=== PATIENT | male | born 1935 | race Caucasian/White ===

== ENCOUNTER 2017-02-18 10:35 | Emergency (ER) | payer BC ==
[2017-02-18 10:45] VITALS: BP 137/70; PULSE 66; TEMP 98.6; BMI 21.9
[2017-02-18] MEDS ORDERED: ONDANSETRON 4 MG/2 ML VIAL IVPUSH ONE (10:48)
[2017-02-18] MEDS ORDERED: SODIUM CHLORIDE 1,000 ML IV STA ×2 (10:48→12:17)
[2017-02-18] MEDS ORDERED: FAMOTIDINE 20 MG/50 ML IVPB 20 MG/50 ML MG IVPB ONE ×3 (10:48→10:59)
--- NOTE | 2017-02-18 10:48 | PDOC ---
History of Present Illness - General Chief Complaint: Vomiting/Diarrhea Stated Complaint: VOMITING, DIARRHEA Time Seen by Provider: 02/18/17 10:42 History Source: Patient Exam Limitations: No Limitations - History of Present Illness Initial Comments: 81 yo M history HTN, Parkinson's, paroxysmal afib (on coumadin) presents with 7 hour history of N/V/D. He states he woke up at 2am, felt nauseous, then proceeded to have multiple episodes of NBNB vomiting and watery diarrhea. He attempted to take his medication at 6am with a sip of water, then immediately vomited up the pills. At that point he stopped trying to eat or drink and called his PMD, who recommended that he present to the ED for possible dehydration. Denies weakness, fever, abd pain. He is not currently nauseated, but it tends to occur when he tries to eat. Past History - Past Medical History Allergies/Adverse Reactions: Allergies Allergy/AdvReac Type Severity Reaction Status Date / Time No Known Allergies Allergy Verified 02/18/17 10:38 Home Medications: Ambulatory Orders Atenolol [Tenormin -] 25 mg PO DAILY 05/13/11 Finasteride [Proscar -] 5 mg PO DAILY 05/13/11 Travatan 0.004% Eye Drop 1 gtt OU HS 05/13/11 Zolpidem Tartrate [Ambien] 10 mg PO HS 05/13/11 Amiodarone HCl [Cordarone -] 200 mg PO DAILY 12/06/12 Carbidopa/Levodopa [Carbidopa-Levo 50-200 Tab SA] 1 each PO TID 02/05/14 Cholecalciferol (Vitamin D3) [Vitamin D3 -] 1,000 unit PO DAILY 11/19/15 Cyanocobalamin [Vitamin B12 -] 1,000 mcg PO DAILY 11/19/15 Ropinirole HCl 0.5 mg PO QID #10 tablet 11/19/15 Ropinirole HCl [Requip] 1 mg PO QID 11/19/15 Warfarin Na [Coumadin] 2 mg PO DAILY@1800 11/19/15 Ondansetron [Zofran Odt -] 4 mg SL TID PRN #21 od.tablet 02/18/17 Ramipril 10 mg PO DAILY 02/18/17 Anemia: No Asthma: No Cancer: Yes (STOMACH 1992,PROSTATE CA 1996,TREATED WITH RT & IMPLANTS) Cardiac Disorders: Yes (ATRIAL FIBRILLATION) CVA: No COPD: No CHF: No Dementia: No Diabetes: No GI Disorders: Yes (STOMACH CA,HAD SX 1992,CHEMO,RT) Disorders: Yes (ON PROSCAR) HTN: Yes Hypercholesterolemia: No Liver Disease: No Seizures: No Thyroid Disease: No - Surgical History Abdominal Surgery: Yes (90 % STOMACH RESECTED FOR CANCER 1992) Appendectomy: Yes () Cardiac Surgery: No Cholecystectomy: Yes (2007) Lung Surgery: No Neurologic Surgery: No Orthopedic Surgery: Yes (RIGHT SHOULDER SX ) - Immunization History Td Vaccination: Yes Immunization Up to Date: Yes - Suicide/Smoking/Psychosocial Hx Smoking Status: No Smoking History: Former smoker Have you smoked in the past 12 months: No Number of Cigarettes Smoked Daily: 0 If you are a former smoker, when did you quit?: 1993 Information on smoking cessation initiated: No Hx Alcohol Use: No Drug/Substance Use Hx: No Substance Use Type: None Hx Substance Use Treatment: No Review of Systems - Review of Systems Able to Perform ROS?: Yes Comments:: GENERAL/CONSTITUTIONAL: No fever or chills. No weakness. HEAD, EYES, EARS, NOSE AND THROAT: No change in vision. No ear pain or discharge. No sore throat. CARDIOVASCULAR: No chest pain or shortness of breath. RESPIRATORY: No cough, wheezing, or hemoptysis. GASTROINTESTINAL: +Nausea, vomiting, diarrhea. No constipation. GENITOURINARY: No dysuria, frequency, or change in urination. MUSCULOSKELETAL: No joint or muscle swelling or pain. No neck or back pain. SKIN: No rash NEUROLOGIC: No headache, vertigo, loss of consciousness, or change in strength/ sensation. ENDOCRINE: No increased thirst. No abnormal weight change. HEMATOLOGIC/LYMPHATIC: No anemia, easy bleeding, or history of blood clots. ALLERGIC/IMMUNOLOGIC: No hives or skin allergy. *Physical Exam - Vital Signs Last Vital Signs Temp Pulse Resp BP Pulse Ox 98.6 F 66 18 137/70 97 02/18/17 10:35 02/18/17 10:35 02/18/17 10:35 02/18/17 10:35 02/18/17 10:35 - Physical Exam Comments: GENERAL: Awake, alert, and fully oriented, in no acute distress HEAD: No signs of trauma EYES: PERRLA, EOMI, sclera anicteric, conjunctiva clear ENT: Auricles normal inspection, hearing grossly normal, nares patent, oropharynx clear without exudates. Dry mucosa NECK: Normal ROM, supple, no lymphadenopathy, JVD, or masses LUNGS: Breath sounds equal, clear to auscultation bilaterally. No wheezes, and no crackles HEART: Regular rate and rhythm, normal S1 and S2, no murmurs, rubs or gallops ABDOMEN: Soft, nontender, +hyperactive bowel sounds. No guarding, no rebound. No masses EXTREMITIES: Normal range of motion, no edema. No clubbing or cyanosis. No cords, erythema, or tenderness NEUROLOGICAL: Cranial nerves II through XII grossly intact. Normal speech, normal gait SKIN: Warm, Dry, normal turgor, no rashes or lesions noted. ED Treatment Course - LABORATORY CBC & Chemistry Diagram: 02/18/17 10:55 02/18/17 10:55 Medical Decision Making - Medical Decision Making 02/18/17 10:51 No signs of acute abdomen on exam, will give IV hydration with pepcid and zofran. Will check labs and UA. 02/18/17 11:58 Pt reports significant improvement in symptoms. Abdominal exam remains benign. Will continue to hydrate. 02/18/17 13:30 Pt significantly improved. Stable for DC home. *DC/Admit/Observation/Transfer Diagnosis at time of Disposition: Nausea, vomiting, and diarrhea - Discharge Dispostion Disposition: HOME Condition at time of disposition: Stable Admit: No - Prescriptions Prescriptions: Ondansetron [Zofran Odt -] 4 mg SL TID PRN #21 od.tablet PRN Reason: Nausea And/Or Vomiting - Referrals Referrals: Harriet Berg MD [Primary Care Provider] - - Patient Instructions Printed Discharge Instructions: DI for Vomiting -- Adult - Post Discharge Activity
[2017-02-18] MEDS ORDERED: ONDANSETRON 4 MG/2 ML VIAL ONE ×2 (10:57→11:00)
[2017-02-18 11:12] LABS: HEMOGLOBIN 14.4 GM/dl (11.7-16.9)
[2017-02-18 11:34] LABS: ALBUMIN 3.4 g/dl (3.5-5.0); ALK PHOS 106 U/L (32-92); ANION GAP 7 (8-16); BILIRUBIN,TOTAL 0.8 mg/dl (0.2-1.0); BLOOD UREA NITROGEN 21 mg/dl (7-18); CALCIUM 8.6 mg/dl (8.4-10.2); CHLORIDE 104 mmol/L (98-107); CO2 25 mmol/L (22-28); CREATININE 1.1 mg/dl (0.6-1.3); GLUCOSE,RANDOM 122 mg/dl (74-106); LIPASE 10 U/L (22-51); POTASSIUM 4.4 mmol/L (3.5-5.1); SGOT/AST 32 U/L (10-42); SGPT/ALT 11 U/L (10-40); SODIUM 136 mmol/L (136-145); TOT PROT 6.2 g/dl (6.4-8.3)
[2017-02-18 11:44] LABS: HEMATOCRIT 43.7 % (35.4-49); MCH 32.2 pg (25.7-33.7); MEAN CELL VOLUME 97.4 fl (80-96); MEAN PLT VOLUME 8.5 fl (7.5-11.1); PLATELET COUNT 186 K/MM3 (134-434); RBC 4.49 M/mm3 (4.00-5.60)
[2017-02-18 11:45] LABS: INR 2.52 (0.82-1.09); PROTHROMBIN TIME (PATIENT) 27.7 SEC (10.2-13.0)
[2017-02-18 11:48] LABS: PH,URINE 5.5 (4.5-8); URINE APPEARANCE Clear; URINE BILIRUBIN Negative (NEGATIVE); URINE GLUCOSE (UA) Negative (NEGATIVE); URINE KETONE Negative (NEGATIVE); URINE NITRITE Negative (NEGATIVE); URINE PROTEIN Negative (NEGATIVE); URINE UROBILINOGEN 0.2 (0.2-1.0)
[2017-02-18 11:54] LABS: URINE BLOOD 2+ (NEGATIVE); URINE COLOR YELLOW
[2017-02-18 12:49] LABS: EPI CELLS RARE /HPF; URINE BACTERIA NONE SEEN /hpf (NEGATIVE); URINE MUCUS 1+; URINE WBC 0-3 (0-2)
[2017-02-18 19:10] LABS: PLATELET ESTIMATE ADEQUATE
== END 2017-02-18 13:45 | disposition home or self-care (01) ==
LOC: FER 10:35
PROC: 3E033GC Introduction of Other Therapeutic Substance into Peripheral Vein, Percutaneous Approach (ICD-10-PCS; principal; 2017-02-18)
PROC: 3E0337Z Introduction of Electrolytic and Water Balance Substance into Peripheral Vein, Percutaneous Approach (ICD-10-PCS; 2017-02-18)
DX: R11.2 Nausea with vomiting, unspecified (principal); R19.7 Diarrhea, unspecified
CPT/HCPCS: 36415; 80053; 81003; 81015; 83690; 85025; 85610; 87086; 96361; 96365; 96375; 99283-25

== ENCOUNTER 2018-02-09 08:10 | Day surgery (SDC) | payer BC ==
[2018-01-29 09:00] VITALS: BMI 19.8
[2018-02-09] MEDS ORDERED: PROPOFOL 20 ML ONE ×2 (09:54)
[2018-02-09 11:07] VITALS: BP 134/70; PULSE 64; TEMP 98
--- NOTE | 2018-02-12 11:35 | PATH ---
Surgical Pathology Report Patient Name: REJI ARIAS Med. Rec. #: [id number] /Age/Gender: 1935 (Age: 82) / M Account: [id number] Location: [facility] Taken: 02/09/2018 Received: 02/09/2018 Reported: 02/12/2018 Physicians: Margarito Quevedo M.D. Specimen(s) Received A: GASTROENTEROSTOMY B: GASTRIC POUCH Clinical History History of gastric cancer Postoperative diagnosis: History of gastric cancer, mild gastritis Final Diagnosis A. GASTROENTROSTOMY, BIOPSY: SMALL BOWEL-TYPE MUCOSA SHOWING MILD CHRONIC INFLAMMATION. IMMUNOSTAIN IS NEGATIVE FOR H. PYLORI ORGANISMS. B. GASTRIC POUCH, BIOPSY: GASTRIC ANTRAL-TYPE MUCOSA SHOWING MODERATE CHRONIC GASTRITIS WITH INTESTINAL METAPLASIA. IMMUNOSTAIN IS NEGATIVE FOR H. PYLORI ORGANISMS. Electronically Signed Rossi Santamaria M.D. Gross Description A. Received in formalin, labeled "gastroenterostomy" is a fam, irregular portion of soft tissue measuring 0.3 cm. in greatest dimension. The specimen is submitted in toto in one cassette. B. Received in formalin, labeled "gastric pouch" are 2 fam, irregular portions of soft tissue averaging 0.4 cm. in greatest dimension. The specimens are submitted in toto in one cassette. 02/09/201802/09/2018
== END 2018-02-09 11:07 | disposition home or self-care (01) ==
LOC: FASU-ENDO 08:10
PROVIDERS: ATTEND Internal Medicine Gastroenterology
PROC: 0DB68ZX Excision of Stomach, Via Natural or Artificial Opening Endoscopic, Diagnostic (ICD-10-PCS; principal; 2018-02-09 10:05)
DX: Z85.028 Personal history of other malignant neoplasm of stomach (principal); K29.50 Unspecified chronic gastritis without bleeding; K31.89 Other diseases of stomach and duodenum; R63.4 Abnormal weight loss; Z90.3 Acquired absence of stomach [part of]
CPT/HCPCS: 88305-TC; 88342-TC

== ENCOUNTER → 2018-05-14 | Day surgery (SDC) | payer BC ==
--- NOTE | 2018-05-15 16:34 | PATH ---
Cytology Non-Gynecological Report Patient Name: REJI ARIAS [facility]. Rec. #: [id number] /Age/Gender: 1935 (Age: 83) / M Account: [id number] Location: [facility] Taken: 05/14/2018 Received: 05/14/2018 Reported: 05/15/2018 Physicians: Merrick Wyman M.D. Specimen(s) Received LEFT THYROID FNA Clinical History Left thyroid nodule, 1.37 x 1.66 cm Final Diagnosis THYROID, LEFT, FINE NEEDLE ASPIRATION: UNSATISFACTORY FOR EVALUATION. BETHESDA CLASS I: NON-DIAGNOSTIC. RARE FOLLICULAR CELLS AND MINIMAL COLLOID IN A HEMORRHAGIC BACKGROUND PRESENT. Comment: The specimen has insufficient follicular cell clusters and/or colloid; and suboptimal for complete cytopathologic evaluation according to [facility] [place] [facility] for Reporting Thyroid FNA. If the nodule has worrisome ultrasound imaging properties, suggest repeat FNA, as warranted. Electronically Signed Gisell Trent M.D. Gross Description Received are eight direct smears, four of which are air-dried and Diff-Quik stained, and four of which are alcohol fixed and Pap stained. Also received is 20 ml of bloody formalin from which one cellblock is prepared.
== END | disposition home or self-care (01) ==
LOC: JRADIR 08:51
PROVIDERS: ATTEND Otolaryngology
PROC: 0G9G3ZX Drainage of Left Thyroid Gland Lobe, Percutaneous Approach, Diagnostic (ICD-10-PCS; principal; 2018-05-14)
DX: E04.1 Nontoxic single thyroid nodule (principal)
CPT/HCPCS: 76942; 88173; 88305-TC

== ENCOUNTER 2018-09-21 11:20 | Day surgery (SDC) | payer BC | END 2018-09-21 12:30 | disposition home or self-care (01) | LOC: FASU-ENDO 11:20 ==

== ENCOUNTER 2021-09-18 06:21 | Day surgery (SDC) | payer BC ==
[2021-09-11 13:58] VITALS: BMI 19.8
[2021-09-18] MEDS ORDERED: ERYTHROMYCIN 0.5% OPHTHALMIC OINTMENT 3.5 GM TUBE ONE (07:05)
[2021-09-18] MEDS ORDERED: ceFAZolin SODIUM 1 GM VIAL ONE ×2 (07:05→08:01)
[2021-09-18] MEDS ORDERED: TETRACAINE 0.5% OPHTH SOLN 2 ML BOTTLE ONE (07:06)
[2021-09-18] MEDS ORDERED: LIDOCAINE HCL 1%, 10 MG/ML (20ML VIAL) ONE (07:06)
[2021-09-18] MEDS ORDERED: BUPIVACAINE HCL 50 ML ONE (07:06)
[2021-09-18] MEDS ORDERED: POVIDONE-IODINE 5% OPHTHALMIC PREP 30 ML SOLUTION ONE (07:06)
[2021-09-18] MEDS ORDERED: EPINEPHrine/PF 1 MG/1 ML (1:1,000) AMPULE ONE (07:06)
[2021-09-18] MEDS ORDERED: PROPOFOL 40 ML ONE (07:48)
[2021-09-18] MEDS ORDERED: MIDAZOLAM HCL 2 MG/2 ML SINGLE DOSE VIAL ONE (07:48)
[2021-09-18] MEDS ORDERED: KETAMINE HCL 200 MG/20 ML VIAL ONE (07:52)
[2021-09-18] MEDS ORDERED: KETOROLAC TROMETHAMINE 30 MG/1 ML VIAL ONE (08:01)
[2021-09-18] MEDS ORDERED: ONDANSETRON 4 MG/2 ML VIAL ONE (08:01)
[2021-09-18] MEDS ORDERED: DEXAMETHASONE SOD PHOSPHATE 4 MG/1 ML VIAL ONE (08:01)
[2021-09-18 10:13] VITALS: BP 135/60; TEMP 96
[2021-09-18 10:33] VITALS: PULSE 58; RESP 16
== END 2021-09-18 11:55 | disposition home or self-care (01) ==
LOC: FASU 06:21
PROVIDERS: ATTEND Ophthalmology
PROC: 0KX10ZZ Transfer Facial Muscle, Open Approach (ICD-10-PCS; 2021-09-18)
PROC: 08SR0ZZ Reposition Left Lower Eyelid, Open Approach (ICD-10-PCS; principal; 2021-09-18 08:04)
DX: C44.1092 Unspecified malignant neoplasm of skin of left lower eyelid, including canthus (principal)
CPT/HCPCS: 94760

== ENCOUNTER 2021-11-10 07:47 | Emergency (ER) | payer BC ==
[2021-11-10] MEDS ORDERED: CYCLOBENZAPRINE HCL 10 MG TABLET (FP) PO ONE (07:54)
[2021-11-10] MEDS ORDERED: ACETAMINOPHEN 325 MG TABLET (FP) PO ONE (07:54)
[2021-11-10 08:03] VITALS: BP 142/67; PULSE 57; RESP 20; TEMP 98.1; BMI 20.3
[2021-11-10] MEDS ORDERED: CYCLOBENZAPRINE HCL 5 MG TABLET ONE (08:04)
[2021-11-10] MEDS ORDERED: ACETAMINOPHEN 325 MG TABLET (FP) ONE (08:04)
== END 2021-11-10 09:53 | disposition home or self-care (01) ==
LOC: FER 07:47
DX: M54.50 Low back pain, unspecified (principal)
CPT/HCPCS: 72070-TC-FY; 72100-TC-FY; 99284-25

== ENCOUNTER 2023-09-05 05:13 | Day surgery (SDC) | payer BC ==
[2023-09-03 12:36] VITALS: BMI 18.6
[2023-09-05 07:59] LABS: INR 1.23 (0.83-1.09); PROTHROMBIN TIME (PATIENT) 14.1 SEC (9.7-13.0)
[2023-09-05] MEDS ORDERED: ONDANSETRON 4 MG/2 ML VIAL IVPUSH PRN (09:45)
[2023-09-05] MEDS ORDERED: LIDOCAINE 1%/EPI 1:100000 (20 ML MULTI DOSE VIAL) ONE (10:03)
[2023-09-05] MEDS ORDERED: BUPIVACAINE HCL/PF 0.5% (5MG/ML) 10 ML VIAL ONE (10:03)
[2023-09-05] MEDS: ceFAZolin SODIUM 1 GM VIAL IVPB ONE (10:25)
[2023-09-05] MEDS ORDERED: SUGAMMADEX SODIUM 200 MG/2 ML VIAL ONE (11:09)
[2023-09-05] MEDS: LACTATED RINGERS SOLUTION 1,000 ML IV SCH (12:49)
[2023-09-05 13:42] VITALS: RESP 18
[2023-09-05 17:07] VITALS: BP 101/52; PULSE 66; TEMP 97.3
== END 2023-09-05 17:00 | disposition home or self-care (01) ==
LOC: JASU-SURG 05:13
PROVIDERS: ATTEND Otolaryngology
PROC: 09UM87Z Supplement Nasal Septum with Autologous Tissue Substitute, Via Natural or Artificial Opening Endoscopic (ICD-10-PCS; principal; 2023-09-05 09:00)
DX: C30.0 Malignant neoplasm of nasal cavity (principal); C79.2 Secondary malignant neoplasm of skin; J34.89 Other specified disorders of nose and nasal sinuses
CPT/HCPCS: 36415; 85610; 86850; 86900; 86901; 88305-TC; 88311-TC; 94760

== ENCOUNTER 2023-11-23 14:29 | Emergency (ER) | payer BC ==
[2023-11-23 14:40] VITALS: BP 149/79; PULSE 76; RESP 18; TEMP 98.3; BMI 18.3
== END 2023-11-23 17:51 | disposition home or self-care (01) ==
LOC: JER 14:29
DX: R04.0 Epistaxis (principal); D49.89 Neoplasm of unspecified behavior of other specified sites
CPT/HCPCS: 99283-25

== ENCOUNTER 2023-12-16 17:42 | Emergency (ER) | payer BC ==
[2023-12-16 17:47] VITALS: RESP 16; TEMP 98.2; BMI 19.2
[2023-12-16 19:31] LABS: BASO % 0.4 % (0-2.0); EOS % 2.4 % (0-4.5); HEMATOCRIT 36.5 % (35.4-49); HEMOGLOBIN 12.1 GM/dL (11.7-16.9); LYMPH % 9.7 % (8-40); MCH 30.2 pg (25.7-33.7); MCHC 33.2 g/dl (32.0-35.9); MEAN PLT VOLUME 6.8 fl (7.5-11.1); MONO % 11.8 % (3.8-10.2); NEUT % 75.7 % (42.8-82.8); PLATELET COUNT 249 10^3/uL (134-434); RBC 4.01 M/mm3 (4.00-5.60); RDW 17.1 % (11.9-15.9); WHITE BLOOD COUNT 6.7 K/mm3 (4.0-10.0)
[2023-12-16 19:42] LABS: INR 1.13 (0.83-1.09); PROTHROMBIN TIME (PATIENT) 12.7 SEC (9.7-13.0)
[2023-12-16 19:51] LABS: POTASSIUM 5.1 mmol/L (3.5-5.1)
[2023-12-16 19:53] LABS: BLOOD UREA NITROGEN 19.4 mg/dL (7-18); CALCIUM 9.1 mg/dL (8.5-10.1)
[2023-12-16 19:56] LABS: CREATININE 1.1 mg/dL (0.55-1.3)
[2023-12-16 19:58] LABS: BILIRUBIN,TOTAL 0.3 mg/dL (0.2-1); TOT PROT 6.4 g/dl (6.4-8.2)
[2023-12-16 22:18] VITALS: BP 155/91; PULSE 91
[2023-12-16 22:59] LABS: EPI CELLS 2 /uL (0-25.1); HYALINE CASTS 0 /uL (0-3.1); PH,URINE 5.5 (5.0-8.0); URINE APPEARANCE CLOUDY; URINE BACTERIA 2 /uL (0-1359); URINE BILIRUBIN NEGATIVE (NEGATIVE); URINE COLOR YELLOW; URINE GLUCOSE (UA) NEGATIVE (NEGATIVE); URINE KETONE NEGATIVE (NEGATIVE); URINE LEUK ESTERASE NEGATIVE (NEGATIVE); URINE NITRITE NEGATIVE (NEGATIVE); URINE PROTEIN TRACE (NEGATIVE); URINE RBC 59 /uL (0-23.9); URINE UROBILINOGEN 0.2 mg/dL (0.2-1.0); URINE WBC 13 /uL (0-25.8)
== END 2023-12-16 23:28 | disposition home or self-care (01) ==
LOC: JER 17:42
DX: R31.9 Hematuria, unspecified (principal); R53.1 Weakness
CPT/HCPCS: 36415; 80053; 81003; 82550; 85025; 85610; 85730; 86850; 86900; 86901; 87086; 99284-25

== ENCOUNTER 2023-12-17 01:08 | Inpatient (IN) | payer BC, OTHER ==
[2023-12-17] MEDS ORDERED: DIPHTH,PERTUSS(ACELL),TET 0.5 ML DISP.SYRIN IM ONE ×2 (03:22→03:23)
[2023-12-17] MEDS: DIPHTH,PERTUSS(ACELL),TET 0.5 ML DISP.SYRIN IM ONE (03:33)
[2023-12-17] MEDS: MELATONIN 1 MG TABLET PO ONE ×2 (03:35→04:04)
[2023-12-17] MEDS: MELATONIN 5 MG TABLETS PO ONE (04:04)
[2023-12-17] MEDS ORDERED: CARBIDOPA/LEVODOPA 25/100 TABLET (FP) ONE (08:35)
[2023-12-17] MEDS: CARBIDOPA/LEVODOPA 25/100 TABLET (FP) PO SCH (08:39)
[2023-12-17 09:12] LABS: BASO % 0.6 % (0-2.0); EOS % 1.1 % (0-4.5); HEMATOCRIT 36.6 % (35.4-49); HEMOGLOBIN 12.1 GM/dL (11.7-16.9); MCHC 33.1 g/dl (32.0-35.9); MEAN CELL VOLUME 90.6 fl (80-96); MEAN PLT VOLUME 6.6 fl (7.5-11.1); MONO % 11.6 % (3.8-10.2); NEUT % 75.7 % (42.8-82.8); PLATELET COUNT 235 10^3/uL (134-434); RBC 4.04 M/mm3 (4.00-5.60); RDW 17.1 % (11.9-15.9); WHITE BLOOD COUNT 5.8 K/mm3 (4.0-10.0)
[2023-12-17 09:43] LABS: POTASSIUM 5.7 mmol/L (3.5-5.1)
[2023-12-17 09:44] LABS: ALBUMIN 2.9 g/dl (3.4-5.0); BLOOD UREA NITROGEN 18.8 mg/dL (7-18); CALCIUM 9.2 mg/dL (8.5-10.1); MAGNESIUM 2.3 mg/dL (1.8-2.4)
[2023-12-17 09:48] LABS: CREATININE 1.2 mg/dL (0.55-1.3)
[2023-12-17 09:49] LABS: BILIRUBIN,TOTAL 0.6 mg/dL (0.2-1); PHOSPHOROUS 3.2 mg/dL (2.5-4.9); TOT PROT 6.2 g/dl (6.4-8.2)
[2023-12-17] MEDS: AMIODARONE HCL 200 MG TABLET PO SCH (11:05)
[2023-12-17] MEDS: metoPROLOL SUCCINATE 25 MG TAB.SR.24H (FP) PO SCH (11:05)
[2023-12-17] MEDS: FINASTERIDE 5 MG TABLET (FP) PO SCH (11:05)
[2023-12-17] MEDS: ENOXAPARIN NA (PORCINE) 40 MG/0.4 ML DISP.SYRIN SQ SCH (11:06)
[2023-12-17] MEDS: SODIUM ZIRCONIUM CYCLOSILICATE (LOKELMA) 5 GM PACKET PO ONE (11:10)
[2023-12-17] MEDS: rOPINIRole HCL 1 MG TABLET (FP) PO SCH (13:32)
[2023-12-17] MEDS: RIVASTIGMINE TARTRATE 1.5 MG CAPSULE PO SCH (13:32)
[2023-12-18] MEDS: RIVASTIGMINE TARTRATE 1.5 MG CAPSULE PO SCH (06:24)
[2023-12-18] MEDS: rOPINIRole HCL 0.5 MG TABLET PO SCH (06:25)
[2023-12-18 08:36] LABS: BASO % 0.5 % (0-2.0); EOS % 2.5 % (0-4.5); HEMATOCRIT 35.2 % (35.4-49); HEMOGLOBIN 11.8 GM/dL (11.7-16.9); LYMPH % 13.7 % (8-40); MCH 30.1 pg (25.7-33.7); MCHC 33.5 g/dl (32.0-35.9); MEAN PLT VOLUME 6.9 fl (7.5-11.1); MONO % 13.9 % (3.8-10.2); NEUT % 69.4 % (42.8-82.8); PLATELET COUNT 216 10^3/uL (134-434); RBC 3.91 M/mm3 (4.00-5.60); RDW 17.1 % (11.9-15.9); WHITE BLOOD COUNT 5.1 K/mm3 (4.0-10.0)
[2023-12-18 08:44] LABS: CHLORIDE 109 mmol/L (98-107); POTASSIUM 4.4 mmol/L (3.5-5.1); SODIUM 140 mmol/L (136-145)
[2023-12-18 09:01] LABS: ALBUMIN 2.6 g/dl (3.4-5.0); CALCIUM 8.5 mg/dL (8.5-10.1)
[2023-12-18 09:02] LABS: ANION GAP 4 mmol/L (4-13); CO2 28 mmol/L (21-32); GLUCOSE,RANDOM 94 mg/dL (74-106)
[2023-12-18 09:05] LABS: CREATININE 1.1 mg/dL (0.55-1.3); SGOT/AST 16 U/L (15-37); SGPT/ALT < 6 U/L (13-61)
[2023-12-18 09:06] LABS: ALK PHOS 93 U/L (45-117); BILIRUBIN,TOTAL 0.5 mg/dL (0.2-1); MAGNESIUM 2.2 mg/dL (1.8-2.4); TOT PROT 5.7 g/dl (6.4-8.2)
[2023-12-18] MEDS: SENNOSIDES 8.8 MG/5 ML SYRUP PO SCH (09:28)
[2023-12-18] MEDS: POLYETHYLENE GLYCOL (HEALTHYLAX) 3350 17 GM PACKET PO SCH (09:28)
[2023-12-18] MEDS: FUROSEMIDE 40 MG TABLET (FP) PO SCH (11:40)
[2023-12-18] MEDS: MELATONIN 5 MG TABLETS PO PRN (22:25)
[2023-12-19 14:51] VITALS: BMI 19.2
[2023-12-20] MEDS: rOPINIRole HCL 0.5 MG TABLET PO SCH (18:37)
[2023-12-21] MEDS ORDERED: diphenhydrAMINE HCL 25 MG CAPSULE (FP) PO PRN (11:24)
[2023-12-21] MEDS: ARTIFICIAL TEARS OPHTHALMIC DROPS OS SCH (14:14)
[2023-12-22] MEDS: hydrOXYzine PAMOATE 25 MG CAPSULE (FP) PO ONE (00:14)
[2023-12-22 17:13] VITALS: BP 135/79; PULSE 89; RESP 18; TEMP 98.4
== END 2023-12-22 17:20 | DRG 57 ==
LOC: JER 01:08 → JERBED 07:36 → INTOOBSV 07:36 → UNDOADMOB 07:36 → OBSVTOIN 08:14 → JERBED 08:14 → INTOOBSV 08:14 → J7W 09:47 → JERBED 09:47 → OBSVTOIN 12-20 10:43 → J7W 12-20 10:43
PROVIDERS: ADMIT Internal Medicine; ATTEND Registered Nurse
DX: G20.A1 Parkinson's disease without dyskinesia, without mention of fluctuations (principal); I48.91 Unspecified atrial fibrillation; I10 Essential (primary) hypertension; C61 Malignant neoplasm of prostate; C76.0 Malignant neoplasm of head, face and neck; R31.0 Gross hematuria; I87.2 Venous insufficiency (chronic) (peripheral); I35.0 Nonrheumatic aortic (valve) stenosis; M47.9 Spondylosis, unspecified; M25.571 Pain in right ankle and joints of right foot; W01.0XXA Fall on same level from slipping, tripping and stumbling without subsequent striking against object, initial encounter; Y93.9 Activity, unspecified; Y92.488 Other paved roadways as the place of occurrence of the external cause; Y99.9 Unspecified external cause status; Z85.028 Personal history of other malignant neoplasm of stomach
CPT/HCPCS: 36415; 70450-TC; 72125-TC; 72170-TC-FY; 73610-TC-RT-FY; 73630-TC-RT-FY; 76775-TC; 80053; 82550; 83735; 84100; 85025; 90715; 97116-GP; 97162-GP; 99285-25